=== PATIENT | female | born 1970 | race Two or more races ===

== ENCOUNTER 2018-07-23 19:44 | Emergency (ER) | payer SELFPAY ==
[~2018-07-23] VITALS: Ht 157.5 cm; Wt 74.8 kg
[~2018-07-23 19:44] MED LIST: NKM
[2018-07-23 19:45] VITALS: BP 142/78
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
[2018-07-23] MEDS ORDERED: Ketorolac 30mg Inj IM ONE (20:30)
[2018-07-23] MEDS ORDERED: Methocarbamol 500mg tab ORAL ONE (20:30)
--- NOTE | 2018-07-23 20:36 | NUR ---
ED Nurse Note: PT GOING TO XRAY
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
--- NOTE | 2018-07-23 20:48 | NUR ---
ED Nurse Note: pt returned from xray
[2018-07-23] MEDS ORDERED: IBUPROFEN600 MG ORAL (20:50)
[2018-07-23] MEDS ORDERED: LIDOCAINE700 M1 TP (20:50)
[2018-07-23] MEDS ORDERED: ROBAXIN500 MG PO (20:50)
--- NOTE | 2018-07-23 21:15 | NUR ---
ED Nurse Note: t dc per ermd order, pt is aox4, pt dc and prescription instructions given pt verablized understaing pt id band removed, pt took all belongings pt is able to ambulate with steady gait
[2018-07-23 21:16] VITALS: BP 142/78
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
== END 2018-07-23 21:21 | disposition home or self-care (01) ==
LOC: EDBD 19:44 → EMR 19:54
DX: S16.1XXA Strain of muscle, fascia and tendon at neck level, initial encounter (principal); S20.219A Contusion of unspecified front wall of thorax, initial encounter; Y92.414 Local residential or business street as the place of occurrence of the external cause; V43.62XA Car passenger injured in collision with other type car in traffic accident, initial encounter
CPT/HCPCS: 71045; 72040; 96372; 99284; J1885